=== PATIENT | female | born 2005 ===

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

== ENCOUNTER 2025-02-02 10:41 | Outpatient (REF) | payer OTHER, SELFPAY ==
[2025-02-03 12:41] LABS: Bacterial Vaginosis PCR NEGATIVE (Negative); Candida Group PCR NOT DETECTED (Not Detect); Candida glab krusei PCR NOT DETECTED (Not Detect); Trichomonas vaginalis PCR NOT DETECTED (Not Detect)
[2025-02-03 13:10] LABS: CT PCR NOT DETECTED (Not Detect.); NG PCR NOT DETECTED (Not Detect.)
== END 2025-02-02 10:42 | disposition home or self-care (01) ==
LOC: HO.LNP 10:41
PROVIDERS: Visit Provider Advanced Practice Midwife
DX: Z01.419 Encounter for gynecological examination (general) (routine) without abnormal findings (principal); Z20.2 Contact with and (suspected) exposure to infections with a predominantly sexual mode of transmission; Z11.3 Encounter for screening for infections with a predominantly sexual mode of transmission; Z30.09 Encounter for other general counseling and advice on contraception
CPT/HCPCS: 81515; 87491; 87591

== ENCOUNTER 2025-02-02 10:41 | Outpatient (AMB) | payer OTHER, SELFPAY ==
[2025-02-02 10:44] VITALS: BP 106/64; BMI 26.1
--- NOTE | 2025-02-02 10:44 | A.OFFVIS_ITS ---
Vital Signs 02/02/25 10:44 Height 5 ft 6 in Weight 162 lb BMI 26.1 BP 106/64 Blood Pressure Location Lt brachial Position Sitting Intake Visit Reasons: New patient Annual Intake Note: Patient here for urogynaecologist annual. Patient was last seen in 2020. 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: No Information Interpreted: non-clinical & clinical Ready To Wear Department Manager: Ready To Wear Department Manager Present (Prachi) Accompanied by: Self / Same As Patient Allergies No Known Allergies Allergy (Verified 02/02/25 10:49) Medication List - Last Reconciled 02/02/25 by Brielle Hammonds LPN No Known Home Meds Is last menstrual period known: Yes Last menstrual period: 01/21/25 Do you need a note to return to daycare/school/sports/work: No HPI HPI New patient Annual: Details: Patient is here for her 1st urogynaecologist annual exam and she wants to talk about control she was here for plus years ago to talk about control then but she does not think she ever started on anything she is now sexually active with her boyfriend she goes to [employer] and is studying psychology with a view towards something in the social work field. She also works at [employer]. She gets regular periods they last about 4 days the 1st 2 can be pretty heavy and crampy and then not so much after that they can be pretty awful the 1st couple of days she has been reading up on all the different methods of control and she cares about having a really effective method of control for now. She is not worried about anything else really she is healthy otherwise she is to do cheer at high school and she was in a very academically reminded high school. She currently uses condoms and is very careful with condom use. She is keeping track of her cycles and her last menstrual periods started on the 7th of this month. [facility] Surgical History No pertinent past surgical history Family History Mother No problems noted. Social History (Updated 02/02/25 @ 10:52 by Breille Hammonds LPN) Housing: Apartment Alcohol intake: never Patient Tobacco Use Status: Never used Tobacco Current occupational status: employed Current occupation: [employer] Current occupational exposures/hazards: No Gender identity: Female Female Reproductive History Menstrual Age of Menarche: 12 Date of last menstrual period: 01/21/25 control method: condoms Total pregnancies: 0 Number of Living Children: 0 Physical Exam Vital Signs: Last Vital Signs BP 106/64 02/02/25 10:44 BMI result Body Mass Index 26.1 Const General: healthy appearing, comfortable, no acute distress, well developed and alert Nutritional Appearance: average body habitus Orientation/consciousness: patient oriented x3 Limitations: no limitations HEENT Head: Yes normocephalic Neck Neck: Yes normal visual inspection Chest Chest palpation & inspection: normal inspection of the chest Breast/axilla inspection: normal inspection of the breasts and normal inspection of the axillae Breast/axilla palpation: normal palpation of the breasts and normal palpation of the axillae Resp Effort & Inspection: normal respiratory effort GI Inspection: Yes normal to inspection, No Abdominal wall edema and No distended Palpation (GI): Soft to palpation and nontender Other: External exam within normal limits vagina pink and moist nulliparous cervix pink smooth healthy appearing with scant white discharge consistent with follicular phase uterus small midposition mobile nontender adnexa nontender good muscle tone. General: Yes bladder normal to palpation External Female Exam: normal external appearance and normal appearance of the urethra Speculum Exam - Vagina: normal appearance of the vagina, normal palpation and normal vaginal discharge Speculum Exam - Cervix: normal appearance of the cervix, normal palpation and nontender Bimanual exam- vagina & uterus: normal bimanual exam, normal palpation, uterine size normal, bladder normal to palpation, consistency normal, normal palpation, uterine mobility normal, uterine shape normal, No Cervical tenderness present, non-tender and no cervical motion tenderness Bimanual Exam- Adnexa, other: normal adnexae, no masses, normal and No adnexal tenderness Neuro General: patient oriented x3 Assessment & Plan Assessment & Plan (1) Well woman exam with routine gynecological exam: Code(s): Z01.419 - Encounter for gynecological examination (general) (routine) without abnormal findings Category: Medical (2) Encounter for screening examination for sexually transmitted disease: Code(s): Z11.3 - Encounter for screening for infections with a predominantly sexual mode of transmission Category: Medical (3) Encounter for counseling regarding contraception: Code(s): Z30.09 - Encounter for other general counseling and advice on contraception Category: Medical Plan -----Discussed in this visit the following: healthy balanced diet, regular and consistent exercise, getting recommended health screens, doing the best she can for her particular health concerns, kegel exercises, pap smear screening and followup recommendations, mammography screening and SBE, normal changes in cycles in her life stage--- .-I reviewed with the patient, all of the currently common used methods of control that are available. We reviewed how they work in the body, how they are taken, common side effects, uncommon side effects, precautions, and contraindications. -Discussed also factors that influence their effectiveness and use, and womens satisfaction with the method. -Discussed how each are used, and drawbacks of each method as well. -Methods covered included: condoms, control pills, control patches, control rings, Depo-Provera, Nexplanon, Mirena and Kyleena IUDs, and ParaGard IUDs. All of the above methods were covered in great detail including their side effect profiles and common experiences that women have and ways to mitigate against the negative experiences including attention to diet and exercise patient's with bleeding challenges that may occur her and efforts to time the initiation of the method to this start of the menstrual period. Orders: Orders Bacterial Vaginosis Panel Today Z11.3 - Encounter for screening for infections with a predominantly sexual mode of transmission CT NG by PCR Vag/Cerv Today Z11.3 - Encounter for screening for infections with a predominantly sexual mode of transmission Medications: New desog-e.estradiol/e.estradiol 0.15-0.02 mgx21 /0.01 mg x 5 1 tab PO DAILY 84 tabs 3RF misoprostol [address] one tab 6 hrs prior to iud insertion, if no or minimal cramping, repeat dose 2 hours before planned insertion, on day 2 of menses. 2 tabs 0RF Coding Level of Care Code New Pt Prev Care [id number] Diagnoses Well woman exam with routine gynecological exam Z01.419 Encounter for screening examination for sexually transmitted disease Z11.3 Encounter for counseling regarding contraception Z30.09
== END 2025-02-02 12:04 | disposition home or self-care (01) ==
LOC: HO.HWSM 10:41
PROVIDERS: Visit Provider Advanced Practice Midwife
DX: Z01.419 Encounter for gynecological examination (general) (routine) without abnormal findings (principal); Z11.3 Encounter for screening for infections with a predominantly sexual mode of transmission; Z30.09 Encounter for other general counseling and advice on contraception
CPT/HCPCS: 99385; 99459